=== PATIENT | male | born 1935 | race Caucasian/White ===

== ENCOUNTER 2019-01-31 07:30 | Inpatient (IN) | payer MEDICARE, OTHER ==
[2019-01-24 15:34] LABS: BASOPHILS % (AUTO) 0.8 % (0-1); EOSINOPHILS # (AUTO) 0.2 X10'3 (0-0.9); EOSINOPHILS % (AUTO) 3.9 % (0-6); LYMPHOCYTES # (AUTO) 1.7 X10'3 (1.1-4.8); LYMPHOCYTES % (AUTO) 29.6 % (21-51); MEAN CORPUSCULAR HGB CONC 34.6 g/dL (33.0-36.5); MEAN CORPUSCULAR VOLUME 95.2 FL (78-98); MEAN PLATELET VOLUME 7.6 FL (7.4-10.4); MONOCYTES # (AUTO) 0.6 X10'3 (0-0.9); NEUTROPHILS # (AUTO) 3.2 X10'3 (1.8-7.7); NEUTROPHILS % (AUTO) 55.7 % (42-75); PRE OP HEMATOCRIT 43.1 % (42.0-52.0); PRE OP HEMOGLOBIN 14.9 g/dL (14.0-17.9); PRE OP PLATELET COUNT 191 X10'3 (140-440); RED BLOOD COUNT 4.53 X10'6 (4.70-6.10); RED CELL DISTRIBUTION WIDTH 13.8 % (11.5-14.5)
[2019-01-24 16:04] LABS: PRE OP INR 1.1 INR; PRE OP PROTIME 11.2 SECONDS (9.0-12.0)
[2019-01-24 16:06] LABS: ALBUMIN 4.1 G/DL (3.4-5.0); ALBUMIN/GLOBULIN RATIO 1.1 (1.1-1.5); ALKALINE PHOSPHATASE 61 IU/L (46-116); BLOOD UREA NITROGEN 17 MG/DL (7-18); CALCIUM 8.9 MG/DL (8.5-10.1); CHLORIDE 106 MMOL/L (99-107); CREATININE 0.85 MG/DL (0.60-1.10); PRE OP ALT 22 U/L (30-65); PRE OP ANION GAP 8 (8-16); PRE OP AST 17 U/L (10-37); PRE OP BILIRUB, TOTAL 0.4 MG/DL (0.0-1.0); PRE OP GLUCOSE 91 MG/DL (70-104); PRE OP POTASSIUM 3.9 MMOL/L (3.4-5.1); PRE OP SODIUM 142 MMOL/L (135-145); TOTAL CARBON DIOXIDE 28.5 MMOL/L (24-32); TOTAL PROTEIN 7.7 G/DL (6.4-8.2); eGFR 87 ML/MIN
[~2019-01-31] VITALS: Ht 172.7 cm; Wt 81.9 kg
[2019-01-31] VITALS (24 sets, daily range): BP systolic 133–193; BP diastolic 51–92
[~2019-01-31 07:30] MED LIST: DOCU-329 PO; LISI40TA4 PO; cefazolin/dext.iso 2gm/50ml 50 ML IV ONE; famotidine 20mg tablet PO ONE; ringers solution, lacted 1,000 ML IV SCH
[2019-01-31] MEDS ORDERED: fentaNYL/PF 50MCG/1 ML 2ML syringe ONE ×2 (10:09→11:24)
[2019-01-31] MEDS ORDERED: midazolam 2 mg/2 ml injection ONE (10:10)
[2019-01-31] MEDS ORDERED: rocuronium 10mg/ml inj IV ONE (10:13)
[2019-01-31] MEDS ORDERED: ondansetron/PF 4mg/2ml inj ONE (10:13)
[2019-01-31] MEDS ORDERED: LIDOcaine 2% (20mg/ml) 5ml vial ONE (10:13)
[2019-01-31] MEDS ORDERED: sevoflurane 250ml liquid IH ONE (10:18)
[2019-01-31] MEDS ORDERED: glycopyrrolate 0.2mg/ml inj ONE (10:18)
[2019-01-31] MEDS ORDERED: propofol 10mg/ml 20ml vial IV ONE (10:18)
[2019-01-31] MEDS ORDERED: dexamethasone sod phosphate 10mg/ml inj ONE (10:18)
[2019-01-31] MEDS ORDERED: neostigmine methylsulfate 1 MG/ML 10ml vial ONE (10:18)
[2019-01-31] MEDS ORDERED: BUPIVAcaine/PF 2.5mg/ml (0.25%) 10ml vial ONE (11:00)
[2019-01-31] MEDS ORDERED: NALOXONE IV PRN (11:27)
[2019-01-31] MEDS ORDERED: morphine/PF injection 20 MG, BUPIVAcaine 0.5% inj/PF 250 MG in normal saline 250ml IV s... EPI SCH (11:27)
[2019-01-31] MEDS ORDERED: NORMAL SALINE IV PRN (11:27)
[2019-01-31] MEDS ORDERED: ringers solution, lacted 1,000 ML IV SCH (11:34)
[2019-01-31] MEDS ORDERED: fentaNYL/PF 50MCG/1 ML 2ML syringe IV PRN ×2 (11:35)
[2019-01-31] MEDS ORDERED: enalaprilat dihydrate 2.5mg/2ml vial IV PRN (11:35)
[2019-01-31] MEDS ORDERED: morphine 4 MG/ML inj SYRINge IV PRN ×2 (11:35)
[2019-01-31] MEDS ORDERED: ondansetron/PF 4mg/2ml inj IV PRN ×2 (11:35→13:10)
[2019-01-31] MEDS ORDERED: albumin (Human) 5% 250ml 250 ML IV ONE ×2 (11:41→12:13)
[2019-01-31] MEDS ORDERED: BUPIVACAINE EPI SCH (11:50)
[2019-01-31] MEDS ORDERED: MORPHINE EPI SCH (11:50)
[2019-01-31] MEDS ORDERED: [UNRECOGNIZED DRUG - OTHER] EPI SCH (11:50)
[2019-01-31] MEDS ORDERED: albumin (Human) 5% 250ml 500 ML IV ONE (12:12)
[2019-01-31] MEDS ORDERED: labetalol 20mg/4ml (5mg/ml) syringe IV ONE (12:53)
--- NOTE | 2019-01-31 13:10 | NUR ---
Received from OR via surgical bed, accompanied by Anesthesiologist Diana and report given by Anesthesiolgist. CBI draining wide open, three way cath present with burgundy drainage in bag, and surgeon aware. 18G left hand, 20G left wrist, IVF LR at 100cc/hr. Pt epidural site without hematoma and very scant drainage. Will attach duramorph drip, filter already present. Abdominal dressing midline intact with mild drainage showing through. ANA M site present below with sanguinous drainage. Mild bloody drainage around tubing of three way catheter. Pt alert and answering questions. VS stable, O2 mask at 10L. Pt states 2/10 pain.
[2019-01-31] MEDS ORDERED: HYDROmorphone 2mg/ml vial IV PRN (13:15)
[2019-01-31 13:31] LABS: ISTAT CREATININE 0.9 mg/dL (0.8-1.3); ISTAT HGB 10.2 g/dl (14.0-18.0); ISTAT IONIZED CALCIUM 1.09 mmol/L (1.03-1.32); ISTAT K 4.3 mmol/L (3.5-5.1); POC BUN/CREATININE RATIO 16.7 (5.4-32.0)
[2019-01-31] MEDS: MORPHINE EPI SCH ×3 (13:35→23:11)
[2019-01-31] MEDS: [UNRECOGNIZED DRUG - OTHER] EPI SCH ×3 (13:35→23:11)
[2019-01-31] MEDS: BUPIVACAINE EPI SCH ×3 (13:35→23:11)
[2019-01-31] MEDS: hydrALAZINE 20mg/ml inj. IV PRN ×2 (13:47→14:28)
--- NOTE | 2019-01-31 14:50 | NUR ---
Report called to receiving nurse ALBINO Mendez. Transferred via surgical bed. Belongings sent with patient, at bedside on transfer. Special Issues communicated to receiving nurse. Hand off to receiving nurse at bedside, discussed epidural drip, CBI, all CBI documentation done prior to this point, patient's pain, and visualized midline dressing and ANA M. BLL call light within reach. Chart and belongings and at bedside. Charge nurse made aware of all changes made prior to now on the epidural.
--- NOTE | 2019-01-31 18:15 | NUR ---
REVIEWED STUDENT'S CHARTING
--- NOTE | 2019-01-31 18:42 | NUR ---
Received report from Vanessa POSADA pt is awake has 3 way CBI running, fluids in F/C are bansal red, pt on 2L, pt has epidural running@13mL/hr
[2019-01-31] MEDS: docusate sod 250mg capsule PO SCH (20:00)
[2019-01-31] MEDS: potassium cl 20mEq in 1/2 NS 1,000 ML IV SCH ×2 (21:15→23:39)
[2019-02-01] VITALS: BP 134/68
[2019-02-01] MEDS: [UNRECOGNIZED DRUG - OTHER] EPI SCH ×4 (00:29→21:13)
[2019-02-01] MEDS: MORPHINE EPI SCH ×4 (00:29→21:13)
[2019-02-01] MEDS: BUPIVACAINE EPI SCH ×4 (00:29→21:13)
--- NOTE | 2019-02-01 00:29 | NUR ---
PT REQUESTED PAIN EPIDURAL BE DECREASED BY HALF, DROPPED FROM 13mL/HR TO 7mL/HR, WELL HAND IRRIGATED CATHETER, MINIMAL CLOTS CAME OUT.
[2019-02-01 04:07] VITALS: BP 122/52
[2019-02-01 05:04] LABS: BASOPHILS % (AUTO) 0.1 % (0-1); EOSINOPHILS % (AUTO) 0 % (0-6); HEMATOCRIT 27.9 % (42.0-52.0); HEMOGLOBIN 9.8 g/dl (14.0-17.9); LYMPHOCYTES # (AUTO) 0.9 X10'3 (1.1-4.8); LYMPHOCYTES % (AUTO) 7.2 % (21-51); MEAN CORPUSCULAR HEMOGLOBIN 33.1 PG (27.0-31.0); MEAN CORPUSCULAR HGB CONC 35.1 g/dL (33.0-36.5); MEAN CORPUSCULAR VOLUME 94.2 FL (78-98); MEAN PLATELET VOLUME 7.4 FL (7.4-10.4); MONOCYTES % (AUTO) 8.1 % (2-12); NEUTROPHILS # (AUTO) 10.6 X10'3 (1.8-7.7); NEUTROPHILS % (AUTO) 84.6 % (42-75); PLATELET COUNT 168 X10'3 (140-440); RED BLOOD COUNT 2.96 X10'6 (4.70-6.10); RED CELL DISTRIBUTION WIDTH 13.5 % (11.5-14.5); WHITE BLOOD COUNT 12.5 X10'3 (4.5-11.0)
[2019-02-01 05:11] LABS: ALBUMIN 3.3 G/DL (3.4-5.0); ANION GAP 6 (8-16); BLOOD UREA NITROGEN 19 MG/DL (7-18); CALCIUM 7.3 MG/DL (8.5-10.1); CHLORIDE 105 MMOL/L (99-107); GLUCOSE 137 MG/DL (70-104); POTASSIUM 4.8 MMOL/L (3.5-5.1); SODIUM 138 MMOL/L (135-145); TOTAL CARBON DIOXIDE 27.4 MMOL/L (24-32); eGFR 72 ML/MIN
[2019-02-01] MEDS: potassium cl 20mEq in 1/2 NS 1,000 ML IV SCH ×4 (05:15→22:36)
--- NOTE | 2019-02-01 06:25 | NUR ---
Patient in room [facility]. I have received report from Nano POSADA and had the opportunity to ask questions and assume patient care.
--- NOTE | 2019-02-01 06:38 | NUR ---
Gave report to Nayely POSADA pt is awake and alert, changed CBI bag, in no apparent distress
[2019-02-01 07:08] VITALS: BP 109/45
[2019-02-01] MEDS: docusate sod 250mg capsule PO SCH ×2 (07:25→19:28)
[2019-02-01] MEDS: lisinopril 20mg tablet PO SCH (07:25)
[2019-02-01] MEDS: opium/belladonna alkaloids No. 15A 30mg rectal suppository RC PRN ×2 (09:33→22:01)
[2019-02-01 11:24] VITALS: BP 109/51
--- NOTE | 2019-02-01 12:23 | NUR ---
Went into patients room to hang another 3000ml irrigation bag, manager of global at bedside changing linens and gown. PCT accidently pulled ANA M drain out while pulling gown away from pt. Minimal bleeding seen at ANA M site, suture still in place. Informed Dr. Patrick of [facility] el[facility] stated to remove suture and cover with dry dressing. No other orders at this time. Small amount of blood on linens after ANA M was pulled, offered to change linens again and patient/ said not to change them at this time. Will continue to monitor.
--- NOTE | 2019-02-01 14:29 | NUR ---
PCT went in to do borden catheter care and patient stated "not right now, I want to take a nap." Will reattempt after nap.
--- NOTE | 2019-02-01 16:01 | NUR ---
PCT at bedside giving F/C care. PCT stated she was going to use a warm wash cloth and soap and pt stated, "I can probably clean it better than you." Pt is cleaning own f/c.
--- NOTE | 2019-02-01 18:30 | NUR ---
Problems reprioritized. Patient report given, questions answered & plan of care reviewed with Nano POSADA.
--- NOTE | 2019-02-01 18:39 | NUR ---
Received report from Nayely POSADA, pt is awake and alert, doing a crossword puzzle asking for the tv, in no apparent distress.
--- NOTE | 2019-02-01 18:54 | NUR ---
Spoke with patient and he stated he doesn't think he should take Blood pressure meds in the morning due to B/P being slightly lower than normal right now. I informed him I would pass it on to the day shift nurse
[2019-02-01 19:00] VITALS: BP 118/55
[2019-02-02] VITALS: BP 104/56
[2019-02-02 05:14] LABS: ANION GAP 3 (8-16); BLOOD UREA NITROGEN 14 MG/DL (7-18); BUN/CREATININE RATIO 17.7 (5.4-32.0); CALCIUM 7.7 MG/DL (8.5-10.1); CHLORIDE 108 MMOL/L (99-107); CREATININE 0.79 MG/DL (0.60-1.10); GLUCOSE 105 MG/DL (70-104); POTASSIUM 4.5 MMOL/L (3.5-5.1); SODIUM 140 MMOL/L (135-145); TOTAL CARBON DIOXIDE 29.1 MMOL/L (24-32); eGFR > 90 ML/MIN
[2019-02-02 05:53] LABS: BASOPHILS % (AUTO) 0.3 % (0-1); EOSINOPHILS # (AUTO) 0.1 X10'3 (0-0.9); HEMATOCRIT 24.2 % (42.0-52.0); HEMOGLOBIN 8.3 g/dl (14.0-17.9); LYMPHOCYTES # (AUTO) 1.6 X10'3 (1.1-4.8); LYMPHOCYTES % (AUTO) 17.7 % (21-51); MEAN CORPUSCULAR HEMOGLOBIN 33.1 PG (27.0-31.0); MEAN CORPUSCULAR HGB CONC 34.3 g/dL (33.0-36.5); MEAN CORPUSCULAR VOLUME 96.4 FL (78-98); MEAN PLATELET VOLUME 7.7 FL (7.4-10.4); MONOCYTES % (AUTO) 11.2 % (2-12); NEUTROPHILS # (AUTO) 6.4 X10'3 (1.8-7.7); NEUTROPHILS % (AUTO) 69.8 % (42-75); PLATELET COUNT 143 X10'3 (140-440); RED BLOOD COUNT 2.51 X10'6 (4.70-6.10); WHITE BLOOD COUNT 9.2 X10'3 (4.5-11.0)
--- NOTE | 2019-02-02 06:17 | NUR ---
Gave report to Gerber POSADA pt is awake and alert on RA, playing on tablet in no apparent distress, call light and items of freq use within reach.
--- NOTE | 2019-02-02 06:20 | NUR ---
Patient in room [facility]. I have received report from ALBINO METCALF and had the opportunity to ask questions and assume patient care.
[2019-02-02] MEDS: potassium cl 20mEq in 1/2 NS 1,000 ML IV SCH ×3 (06:45→19:32)
[2019-02-02 07:00] VITALS: BP 119/55
[2019-02-02] MEDS: lisinopril 20mg tablet PO SCH (08:00)
[2019-02-02] MEDS: docusate sod 250mg capsule PO SCH ×2 (08:22→20:00)
--- NOTE | 2019-02-02 09:27 | NUR ---
DR FERGUSON IN TO SEE PATIENT.
[2019-02-02] MEDS: opium/belladonna alkaloids No. 15A 30mg rectal suppository RC PRN (09:59)
[2019-02-02] MEDS ORDERED: bisacodyl 10mg suppository rectal RC PRN (10:30)
[2019-02-02] MEDS: morphine/PF injection 8 MG in normal saline 100ml IV soln 92 ML EPI SCH (11:30)
--- NOTE | 2019-02-02 13:46 | NUR ---
Patient c/o bladder pain and requested for irrigation of borden catheter. Borden catheter manually irrigated with small clot return. Patient tolerated well.
--- NOTE | 2019-02-02 15:53 | NUR ---
Physical therapy at bedside.
[2019-02-02] MEDS ORDERED: morphine/PF injection 8 MG in normal saline 100ml IV soln 92 ML EPI SCH (17:00)
--- NOTE | 2019-02-02 17:00 | NUR ---
HAND IRRIGATED PATIENTS GARCIA CATHETER. THERE WAS RETURN OF LITTLE CLOTS AND TISSUE. PATIENT TOLERATED PROCEDURE WELL.
[2019-02-02 18:30] VITALS: BP 127/53
--- NOTE | 2019-02-02 18:34 | NUR ---
Problems reprioritized. Patient report given, questions answered & plan of care reviewed with ALBINO REARDON.
[2019-02-02 18:50] VITALS: BP 127/55
[2019-02-02] MEDS: polyethylene glycol 3350 17gm powd pack PO SCH (20:46)
[2019-02-03] MEDS: potassium cl 20mEq in 1/2 NS 1,000 ML IV SCH ×2 (05:15→12:02)
[2019-02-03 06:21] LABS: BASOPHILS % (AUTO) 0.3 % (0-1); EOSINOPHILS # (AUTO) 0.1 X10'3 (0-0.9); EOSINOPHILS % (AUTO) 1.7 % (0-6); HEMATOCRIT 23.3 % (42.0-52.0); HEMOGLOBIN 8.2 g/dl (14.0-17.9); LYMPHOCYTES # (AUTO) 1.5 X10'3 (1.1-4.8); LYMPHOCYTES % (AUTO) 17.4 % (21-51); MEAN CORPUSCULAR HEMOGLOBIN 33.8 PG (27.0-31.0); MEAN CORPUSCULAR HGB CONC 35.4 g/dL (33.0-36.5); MEAN CORPUSCULAR VOLUME 95.7 FL (78-98); MEAN PLATELET VOLUME 7.7 FL (7.4-10.4); MONOCYTES # (AUTO) 1.3 X10'3 (0-0.9); MONOCYTES % (AUTO) 15.2 % (2-12); NEUTROPHILS # (AUTO) 5.7 X10'3 (1.8-7.7); NEUTROPHILS % (AUTO) 65.4 % (42-75); PLATELET COUNT 160 X10'3 (140-440); RED BLOOD COUNT 2.44 X10'6 (4.70-6.10); RED CELL DISTRIBUTION WIDTH 13.8 % (11.5-14.5); WHITE BLOOD COUNT 8.6 X10'3 (4.5-11.0)
[2019-02-03 06:26] LABS: ANION GAP 5 (8-16); BLOOD UREA NITROGEN 10 MG/DL (7-18); BUN/CREATININE RATIO 13.3 (5.4-32.0); CALCIUM 7.7 MG/DL (8.5-10.1); CHLORIDE 107 MMOL/L (99-107); CREATININE 0.75 MG/DL (0.60-1.10); GLUCOSE 113 MG/DL (70-104); POTASSIUM 4.1 MMOL/L (3.5-5.1); SODIUM 139 MMOL/L (135-145); TOTAL CARBON DIOXIDE 27.5 MMOL/L (24-32); eGFR > 90 ML/MIN
--- NOTE | 2019-02-03 06:30 | NUR ---
Patient in room [facility]. I have received report from Donte POSADA and had the opportunity to ask questions and assume patient care.
--- NOTE | 2019-02-03 06:43 | NUR ---
Problems reprioritized. Patient report given, questions answered & plan of care reviewed with FER. Addendum: 02/03/19 at 0643 by Luis Pantoja RN Amended: Links added.
[2019-02-03 07:00] VITALS: BP 128/60
[2019-02-03] MEDS: lisinopril 20mg tablet PO SCH (08:00)
[2019-02-03] MEDS: docusate sod 250mg capsule PO SCH ×2 (08:00→19:23)
[2019-02-03] MEDS: morphine/PF injection 8 MG in normal saline 100ml IV soln 92 ML EPI SCH (08:15)
[2019-02-03 11:00] VITALS: BP 134/70
--- NOTE | 2019-02-03 17:00 | NUR ---
Repeatedly went to assess patient in his urine output. Patient did not want to have the CBI irrigated he felt as thought it was flowing well and he had no c/o discomfort. Let patient know that I would irrigated if as needed.
[2019-02-03 18:40] VITALS: BP 140/55
--- NOTE | 2019-02-03 18:48 | NUR ---
Problems reprioritized. Patient report given, questions answered & plan of care reviewed with Donte POSADA.
[2019-02-03] MEDS: opium/belladonna alkaloids No. 15A 30mg rectal suppository RC PRN (19:12)
[2019-02-03] MEDS: polyethylene glycol 3350 17gm powd pack PO SCH (19:23)
[2019-02-04] VITALS: BP 147/71
--- NOTE | 2019-02-04 02:00 | NUR ---
CBI TURNED OFF.
[2019-02-04] MEDS: opium/belladonna alkaloids No. 15A 30mg rectal suppository RC PRN (04:14)
[2019-02-04] MEDS: potassium cl 20mEq in 1/2 NS 1,000 ML IV SCH (04:23)
[2019-02-04 05:01] LABS: BASOPHILS % (AUTO) 0.2 % (0-1); EOSINOPHILS # (AUTO) 0.2 X10'3 (0-0.9); EOSINOPHILS % (AUTO) 1.7 % (0-6); HEMATOCRIT 26.5 % (42.0-52.0); HEMOGLOBIN 9.3 g/dl (14.0-17.9); LYMPHOCYTES # (AUTO) 1.9 X10'3 (1.1-4.8); MEAN CORPUSCULAR HEMOGLOBIN 33.3 PG (27.0-31.0); MEAN CORPUSCULAR HGB CONC 35.2 g/dL (33.0-36.5); MEAN CORPUSCULAR VOLUME 94.9 FL (78-98); MEAN PLATELET VOLUME 7.3 FL (7.4-10.4); MONOCYTES % (AUTO) 10.4 % (2-12); NEUTROPHILS # (AUTO) 6.6 X10'3 (1.8-7.7); NEUTROPHILS % (AUTO) 67.7 % (42-75); PLATELET COUNT 201 X10'3 (140-440); RED BLOOD COUNT 2.79 X10'6 (4.70-6.10); RED CELL DISTRIBUTION WIDTH 13.6 % (11.5-14.5); WHITE BLOOD COUNT 9.7 X10'3 (4.5-11.0)
[2019-02-04 05:18] LABS: ALBUMIN 3.1 G/DL (3.4-5.0); ANION GAP 9 (8-16); BLOOD UREA NITROGEN 10 MG/DL (7-18); BUN/CREATININE RATIO 10.4 (5.4-32.0); CALCIUM 8.2 MG/DL (8.5-10.1); CHLORIDE 106 MMOL/L (99-107); CREATININE 0.96 MG/DL (0.60-1.10); GLUCOSE 122 MG/DL (70-104); POTASSIUM 4.1 MMOL/L (3.5-5.1); SODIUM 141 MMOL/L (135-145); TOTAL CARBON DIOXIDE 26.5 MMOL/L (24-32); eGFR 75 ML/MIN
--- NOTE | 2019-02-04 06:30 | NUR ---
Patient in room [facility]. I have received report from Renetta POSADA and had the opportunity to ask questions and assume patient care.
--- NOTE | 2019-02-04 06:30 | NUR ---
Patient in room [facility]. I have received report from Donte POSADA and had the opportunity to ask questions and assume patient care.
--- NOTE | 2019-02-04 06:47 | NUR ---
Problems reprioritized. Patient report given, questions answered & plan of care reviewed with FER. Addendum: 02/04/19 at 0647 by Luis Pantoja RN Amended: Links added.
[2019-02-04 07:41] VITALS: BP 161/74
[2019-02-04] MEDS: docusate sod 250mg capsule PO SCH (09:17)
[2019-02-04] MEDS: lisinopril 20mg tablet PO SCH (09:19)
[2019-02-04 11:10] VITALS: BP 135/75
[2019-02-04] MEDS ORDERED: OXYB5TAB16 PO (11:54)
[2019-02-04] MEDS ORDERED: HYDR-3965 PO (11:54)
--- NOTE | 2019-02-04 12:24 | NUR ---
Rx called in to [facility] on [address].
--- NOTE | 2019-02-04 13:30 | NUR ---
Patient discharged all iv taken out at this time. Patient verbally understood discharge teaching and understand medication changes. Patient expressed verbal understanding of catheter care and changing. Patient discharged into the care of his and she expressed understanding as well patient left with all supplies needed. Patient taken to care via wheelchair at discharge
== END 2019-02-04 13:47 | disposition home or self-care (01) | DRG 718 ==
LOC: PAS IN 07:38 → EDSTATUS 09:45 → SUR 3N 13:10
PROVIDERS: ADMIT Urology; ATTEND Urology
PROC: 0VB00ZZ Excision of Prostate, Open Approach (ICD-10-PCS; principal; 2019-01-31 10:18)
DX: D29.1 Benign neoplasm of prostate (principal); N32.0 Bladder-neck obstruction
CPT/HCPCS: 36415; 80047; 80048; 80053; 82948; 85025; 85610; 85730; 86885; 86900; 86901; 86920; 87081; 88305; 93005; 97116; 97162; 97530; A4338; A4346; A4355; A4357; A4618; A6402; A7000; C1758; C1769; G0378; J0360; J1100; J1170; J2001; J2250; J2270; J2310; J2405; J2704; J2710; J3010; J3480; J3490; J7030; J7040; J7050; J7120; P9045